=== PATIENT | male | born 1985 | race African-American/Black ===

== ENCOUNTER 2018-06-01 11:36 | Inpatient (IN) | payer SELFPAY ==
[2018-06-01] MEDS ORDERED: Acetaminophen 500 MG TAB ONE (12:08)
[2018-06-01 12:36] LABS: Anion Gap 12 mmol/L (10-20); BUN (Urea Nitrogen) 8 mg/dL (8.9-20.6); CK (CPK) 267 U/L (30-200); Calc. Creatinine Clearance 0 mL/min (70-130); Calcium 9.5 mg/dL (7.8-10.44); Carbon Dioxide 26 mmol/L (22-29); Chloride 103 mmol/L (98-107); Estimated GFR-MDRD Greater than 90; Glucose 100 mg/dL (70-105); Potassium 3.7 mmol/L (3.5-5.1); Sodium 137 mmol/L (136-145)
[2018-06-01 12:40] LABS: #Basophils 0.1 thou/uL (0.0-0.2); #Eosinphils 0.1 thou/uL (0.0-0.7); #Lymphocytes 1.6 thou/uL (1.20-3.40); #Monocytes 0.5 thou/uL (0.11-0.59); #Neutrophils 3.8 thou/uL (1.40-6.50); %Basophils 1.5 % (0.0-1.0); %Lymphocytes 26.3 % (21.0-51.0); %Monocytes 8.1 % (0.0-10.0); %Neutrophils 63.2 % (42.0-75.0); Hemoglobin 16.1 g/dL (14.0-18.0); Mean Corpuscular HGB CONC 35.2 g/dL (32.0-36.0); Mean Corpuscular Hemoglobin 30.7 pg (27.0-31.0); Mean Corpuscular Volume 87.4 fL (78.0-98.0); Mean Platelet Volume 7.6 fL (7.4-10.4); Platelet Count 186 thou/uL (130-400); RBC Distribution Width 11.1 % (11.5-14.5); Red Blood Cell (RBC) Count 5.22 mill/uL (4.70-6.10); White Blood Cell (WBC) Count 6.1 thou/uL (4.8-10.8)
[2018-06-01] MEDS ORDERED: Enoxaparin Sodium 100 MG/ML SYRINGE ONE (14:05)
[2018-06-01] MEDS ORDERED: Enoxaparin Sodium 30 MG/0.3 ML SYRINGE ONE (14:05)
--- NOTE | 2018-06-01 14:13 | ULT ---
BILATERAL LOWER EXTREMITY VENOUS DOPPLER: HISTORY: Calf swelling. COMPARISON: None. TECHNIQUE: Rela-time, rich scale, color Doppler, and spectral analysis of bilateral lower extremity venous syste m was performed. FINDINGS: There is partial occlusive thrombosis in the left popliteal vein. There is occlusive thrombus in the left posterior tibial vein. There is adequate flow, augmentation, and compression of the right lowe r extremity venous system. IMPRESSION: Left lower extremity deep vein thrombosis involving the popliteal and posterior tibial veins. Dr. Daley notified at 1:25 p.m. CODE CR POS: [facility]
[2018-06-01 16:25] VITALS: BMI 39.2
--- NOTE | 2018-06-01 16:41 | PDOC.FPRHP ---
- History of Present Illness Chief Complaint: left lower leg pain History of Present Illness: This is a 33 yo male who presented to [facility] with a 4 day history of left lower extremity pain. He states that the pain started on Tuesday after awaking from sleep in a recliner. He states that the pain has been constant, a "10/10 at rest and 15/10 with weight bearing." He states that he has also had some swelling in that left lower leg. He states that his sensation is different on his left. He denies pins and needles in his leg. He states that he tried tumeric for pain relief on Tuesday with no relief. ED Course: In the [facility] he underwent a LLE US that revealed noncompressable proximal and distal popliteal veins and left prosimal tibial veins indicating DVT. He also received 110mg of lovenox. - Allergies/Adverse Reactions Allergies Allergy/AdvReac Type Severity Reaction Status Date / Time No Known Allergies Allergy Unverified 06/01/18 16:28 - Home Medications Medication Instructions Recorded Confirmed Type No Known [No Known] 06/01/18 06/01/18 History - History PMHx:None PSHx: none FHx: Denies any family history of cancer, clotting disorders, or autoimmune disorders Social: Denies D/T/A - Review of Systems General: denies: fever/chills, weight/appetite/sleep changes, night sweats, fatigue Eyes: denies: eye pain, vision changes Respiratory: denies: cough, congestion, shortness of breath, exercise intolerance Cardiovascular: denies: chest pain, palpitation Gastrointestinal: denies: nausea, vomiting, diarrhea Genitourinary: denies: incontinence, dysuria Skin: denies: rashes, lesions Musculoskeletal: reports: pain, tenderness, swelling (States he has had some swelling in his LLE) Neurological: denies: numbness, syncope, seizure, weakness Psychological: denies: anxiety, depression - Vital signs BP: [149/84] HR: [92] RR: [16] Tmax: [98.9] Pox: [96]% on [RA] Wt: [127.414] - Physical Exam Constitutional: NAD, awake, alert and oriented HEENT: normocephalic and atraumatic, PERRLA, EOMI Neck: supple, FROM Chest: no-tender to palpation, no lesions Heart: RRR, normal S1/S2, no murmurs/rubs/gallops Lungs: CTAB, no respiratory distress, good air movement Abdomen: soft, non-tender, bowel sounds present, no masses/distention Musculoskeletal: ROM grossly normal -Musculoskeletal: Swelling over left lower extremity from distal calf to mid thigh, there is tenderness to palpation over left lower extremity with warmth, no erythema although Pt. is AA and skin tone makes exam difficult Neurological: no focal deficit, CN II-XII intact -Neurological: Pt. states that his sensation on his lower foot is different. He can feel pressure but it is different Skin: no rash/lesions, good turgor, capillary refill <2 seconds Heme/Lymphatic: no unusual bruising or bleeding, no purpura Psychiatric: normal mood and affect, good judgment and insight, intact recent and remote memory FMR H&P: Results - Labs Result Diagrams: 06/01/18 12:10 06/01/18 12:10 Lab results: WBC 6.1 thou/uL (4.8-10.8) 06/01/18 12:10 Hgb 16.1 g/dL (14.0-18.0) 06/01/18 12:10 Hct 45.7 % (42.0-52.0) 06/01/18 12:10 MCV 87.4 fL (78.0-98.0) 06/01/18 12:10 Plt Count 186 thou/uL (130-400) 06/01/18 12:10 Neutrophils % 63.2 % (42.0-75.0) 06/01/18 12:10 Sodium 137 mmol/L (136-145) 06/01/18 12:10 Potassium 3.7 mmol/L (3.5-5.1) 06/01/18 12:10 Chloride 103 mmol/L (98-107) 06/01/18 12:10 Carbon Dioxide 26 mmol/L (22-29) 06/01/18 12:10 BUN 8 mg/dL (8.9-20.6) L 06/01/18 12:10 Creatinine 0.84 mg/dL (0.7-1.3) 06/01/18 12:10 Glucose 100 mg/dL (70-105) 06/01/18 12:10 Calcium 9.5 mg/dL (7.8-10.44) 06/01/18 12:10 Creatine Kinase 267 U/L (30-200) H 06/01/18 12:10 - Radiology Interpretation US - venous Status: report reviewed by me (Proximal and distal popliteal vein, and proximal tibial vein DVT, noncompressable) R H&P: A/P - Problem List (1) Acute deep vein thrombosis of left lower extremity Current Visit: Yes Status: Acute Code(s): I82.402 - ACUTE EMBOLISM AND THOMBOS UNSP DEEP VEINS OF L LOW EXTREM - Plan This is 33 yo otherwise healthy male. Acute venous Thrombosis of the left lower extremity -Therapeutic lovenox 110mg -Warfarin 5 mg starting dose with morning INR, PTT -Monitor for respiratory distress -Hypercoagulation panel -Heparin Anti Ten A level -Casework consult for xarelto assistance program or other anticoagulation Code: FULL Family: none present at bedside Prophylaxis: none Disposition: home in 2 days FMR H&P: Upper Level - Pertinent history HPI: Patient is a 33yo AA M with no PMH presented to [facility] for 4 day hx of LLE swelling and pain. Doppler study revealed L proximal and distal DVT. Patient reports no prior trauma, no recent travel, no prior DVTs. He reports no other sx, no CP, SOB, unexplained wt loss, hematochezia/melena. No family hx of hypercoagulable disorders. She was given lovenox 110mg IM at outside facility and transferred here. ROS: 10 pt ROS performed and negative other than those mentioned in HPI PMH: none FHx: none All: none Social: occasional ETOH, former tobacco use on and off for 10 years Meds: none - Pertinent findings VS: BP- 149/84, R-16, P-92, T-98.9, O2-96% RA, Wt- 120 kg PE: General: NAD, obese, AOx3 HEENT: no JVD, no LAD Cardiac: RRR, no murmurs, distal pulses 2+ Respiratory: CTAB Abd: BS+, no ttp Ext: LLE warm with significant non-pitting edema up to the level of the thigh, ttp, + homans Pertinent Labs: CK 267 Imaging: LLE Doppler: proximal and distal popliteal DVT and distal tibial DVT - Plan Date/Time: 06/01/18 1638 IUma, have evaluated this patient and agree with findings/plan as outlined by purchasing intern resident. Pertinent changes/additions are listed here. 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 Will get peripheral smear, ESR, thrombotic panel to further evaluate. Continue therapeutic lovenox as monitored by anti-10a level. Will bridge to Coumadin. 2.Elevated BP w/o diagnosis of HTN: likely 2/2 stress. Continue to monitor. 3.Elevated CK: PO hydrate
[2018-06-01] MEDS ORDERED: Acetaminophen 325 MG TAB PO PRN (17:18)
[2018-06-01] MEDS ORDERED: Ondansetron ODT 4 MG TAB PO PRN (17:18)
[2018-06-01 18:32] LABS: Hemoglobin 16.7 g/dL (14.0-18.0); Mean Corpuscular HGB CONC 33.7 g/dL (32.0-36.0); Mean Corpuscular Hemoglobin 31.5 pg (27.0-31.0); Mean Corpuscular Volume 93.6 fL (78.0-98.0); Mean Platelet Volume 7.6 fL (7.4-10.4); Platelet Count 192 thou/uL (130-400); RBC Distribution Width 12.1 % (11.5-14.5); Red Blood Cell (RBC) Count 5.29 mill/uL (4.70-6.10); White Blood Cell (WBC) Count 6.7 thou/uL (4.8-10.8)
[2018-06-01 18:35] LABS: PTT 32.6 SEC (22.9-36.1); Prothrombin Time 13.6 SEC (12.0-14.7)
[2018-06-01] MEDS: Warfarin Sodium 5 MG TAB PO SCH (18:39)
[2018-06-01 18:53] LABS: Lymphocytes 38 % (21-51); MDiff Complete? YES; Monocytes 3 % (0-10); Neutrophil 58 % (42-75); PLT Morphology Comment Appears Adequate; RBC Morphology Normal; Reactive Lymphocytes 1 % (0-10)
[2018-06-01] MEDS: Enoxaparin Sodium 80 MG/0.8 ML SYRINGE SC SCH (20:12)
[2018-06-02 05:02] LABS: #Basophils 0.1 thou/uL (0.0-0.2); #Eosinphils 0.1 thou/uL (0.0-0.7); #Lymphocytes 2.9 thou/uL (1.20-3.40); #Monocytes 0.6 thou/uL (0.11-0.59); #Neutrophils 2.9 thou/uL (1.40-6.50); %Basophils 1.1 % (0.0-1.0); %Eosinophils 1.3 % (0.0-10.0); %Lymphocytes 44.7 % (21.0-51.0); %Monocytes 8.4 % (0.0-10.0); %Neutrophils 44.5 % (42.0-75.0); Hemoglobin 15.7 g/dL (14.0-18.0); Mean Corpuscular HGB CONC 33.3 g/dL (32.0-36.0); Mean Corpuscular Hemoglobin 31.3 pg (27.0-31.0); Mean Corpuscular Volume 94.2 fL (78.0-98.0); Mean Platelet Volume 7.4 fL (7.4-10.4); Platelet Count 188 thou/uL (130-400); RBC Distribution Width 12.1 % (11.5-14.5); Red Blood Cell (RBC) Count 5.01 mill/uL (4.70-6.10); White Blood Cell (WBC) Count 6.5 thou/uL (4.8-10.8)
[2018-06-02 05:07] LABS: Anion Gap 10 mmol/L (10-20); BUN (Urea Nitrogen) 10 mg/dL (8.9-20.6); Calc. Creatinine Clearance 220 mL/min (70-130); Calcium 9.5 mg/dL (7.8-10.44); Carbon Dioxide 30 mmol/L (22-29); Chloride 103 mmol/L (98-107); Estimated GFR-MDRD Greater than 90; Glucose 92 mg/dL (70-105); Potassium 4.2 mmol/L (3.5-5.1); Sodium 139 mmol/L (136-145)
--- NOTE | 2018-06-02 05:35 | PDOC.FM ---
- Subjective Subjective: Pt. states he did well overnight. Denies SOB, chest pain, abdominal pain, and headaches. He states that the pain in his leg is decreased at 4/10. He did not need pain meds overnight. - Objective MAR Reviewed: Yes Vital Signs & Weight: Vital Signs (12 hours) Temp Pulse Resp BP Pulse Ox 06/02/18 04:14 98 F 63 16 117/72 98 06/01/18 23:25 98.2 F 88 15 120/62 94 L 06/01/18 20:12 98.6 F 93 18 06/01/18 19:24 98.6 F 93 18 163/87 H 95 Weight Weight 127.414 kg I&O: 05/31/18 06/01/18 06/02/18 06:59 06:59 06:59 Intake Total 480 Balance 480 Result Diagrams: 06/02/18 04:31 06/02/18 04:30 <Vin Holm - Last Filed: 06/02/18 08:39> - Objective Vital Signs & Weight: Vital Signs (12 hours) Temp Pulse Resp BP Pulse Ox 06/02/18 08:00 98.1 F 70 15 06/02/18 07:57 98.1 F 70 15 124/72 95 06/02/18 04:14 98 F 63 16 117/72 98 Weight Weight 127.414 kg I&O: 06/01/18 06/02/18 06/03/18 06:59 06:59 06:59 Intake Total 1040 Output Total 300 Balance 1040 -300 Result Diagrams: 06/02/18 04:31 06/02/18 04:30 <Bienvenido Jackson - Last Filed: 06/02/18 12:05> Phys Exam - Physical Examination Constitutional: NAD HEENT: PERRLA, moist MMs Neck: no JVD, full ROM Respiratory: no wheezing, clear to auscultation bilateral Cardiovascular: RRR, no significant murmur Gastrointestinal: soft, non-tender, no distention, positive bowel sounds Musculoskeletal: pulses present Pain to palpation in LLE is decreased as is the swelling Neurological: moves all 4 limbs Sensation on LLE is still described as different Psychiatric: normal affect, A&O x 3 Skin: no rash, cap refill <2 seconds <Vin Holm - Last Filed: 06/02/18 08:39> Dx/Plan (1) Acute deep vein thrombosis of left lower extremity Code(s): I82.402 - ACUTE EMBOLISM AND THOMBOS UNSP DEEP VEINS OF L LOW EXTREM Status: Acute - Plan Plan: This is a 33 yo male, otherwise healthy Acute, unprovoked DVT -Bridge with therapeutic lovenox 1mg/kg BID -Continue warfarin until xarelto assistance becomes available or pt. is discharged -Monitor for respiratory distress -Await results of hypercoagulation panel -PT: 13.6, PTT: 32.6, INR: 1.0, D-Dimer: 3.60, ESR: 16 -Continue casework consult for xarelto assistance <Vin Holm - Last Filed: 06/02/18 08:39> Attending Addendum - Attending Addendum Date/Time: 06/02/18 1203 I personally evaluated the patient and discussed the management with Dr. Holm. I agree with the History, Examination, Assessment and Plan documented above with any addition or exceptions noted below. Patient with acute unprovoked DVT of the LLE. He will continue on lovenox with bridging to coumadin unless we can accommodate NOAC therapy. Symptomatic treatment as needed. No evidence of VTE. Thrombosis panel pending but no family history of hypercoagulability, and no recent injury or seemingly pre-disposing event that would have led to this. <Bienvenido Jackson - Last Filed: 06/02/18 12:05>
[2018-06-02] MEDS: Enoxaparin Sodium 80 MG/0.8 ML SYRINGE SC SCH ×2 (07:54→20:07)
[2018-06-02] MEDS: Warfarin Sodium 5 MG TAB PO SCH (16:35)
[2018-06-02 17:06] LABS: PTT 33.1 SEC (22.9-36.1); Prothrombin Time 13.4 SEC (12.0-14.7)
[2018-06-02 22:57] LABS: Cardiolipin IgA Ab 3.3 APL-U/mL (<14 Negative); Cardiolipin IgG Ab 1.4 GPL-U/mL (<10 Negative); Cardiolipin IgM Ab 1.3 MPL-U/mL (<10 Negative); EliA APS New Method **** NEW METHOD ****
--- NOTE | 2018-06-03 05:57 | PDOC.FM ---
- Subjective Subjective: Pt. states he did well overnight. He called xarelto assistance and he needs a discharge date and a prescription. We discussed the plan for him and the goals while he is here. He states that the feeling in his leg is improving and that he has less pain today than the days before. He denies chest pain or trouble breathing. - Objective MAR Reviewed: Yes Vital Signs & Weight: Vital Signs (12 hours) Temp Pulse Resp BP Pulse Ox 06/03/18 05:35 96 06/03/18 04:05 98.3 F 59 L 18 123/73 96 06/02/18 19:03 98.6 F 79 16 06/02/18 18:57 98.6 F 79 16 136/75 96 Weight Weight 127.55 kg I&O: 06/01/18 06/02/18 06/03/18 06:59 06:59 06:59 Intake Total 1040 750 Output Total 300 Balance 1040 450 Result Diagrams: 06/02/18 04:31 06/02/18 04:30 <Vin Holm - Last Filed: 06/03/18 07:27> - Objective Vital Signs & Weight: Vital Signs (12 hours) Temp Pulse Resp BP Pulse Ox 06/03/18 08:00 97.5 F L 61 16 06/03/18 07:32 97.5 F L 61 16 117/66 96 06/03/18 05:35 96 06/03/18 04:05 98.3 F 59 L 18 123/73 96 Weight Weight 127.55 kg I&O: 06/02/18 06/03/18 06/04/18 06:59 06:59 06:59 Intake Total 1040 1200 Output Total 900 Balance 1040 300 Result Diagrams: 06/02/18 04:31 06/02/18 04:30 <Nicki Moran - Last Filed: 06/03/18 10:44> Phys Exam - Physical Examination Constitutional: NAD HEENT: PERRLA, moist MMs Neck: no JVD, full ROM Respiratory: no wheezing, clear to auscultation bilateral Cardiovascular: RRR, no significant murmur Gastrointestinal: soft, non-tender Musculoskeletal: pulses present Decreasing swelling, warmth, and pain with palpation States that the sensation in his foot is improved Psychiatric: normal affect, A&O x 3 Skin: no rash, cap refill <2 seconds <Vin Holm - Last Filed: 06/03/18 07:27> Dx/Plan (1) Acute deep vein thrombosis of left lower extremity Code(s): I82.402 - ACUTE EMBOLISM AND THOMBOS UNSP DEEP VEINS OF L LOW EXTREM Status: Acute - Plan Plan: This is a 33 yo male, otherwise health Acute, unprovoked DVT -Pridge with therapeoutic lovenox 1mg/kg BID -Coninue warfarin until zarelto assistance becomes availble or pt. is discharged -Monitor for respiratory distress -Pending hypergoagulation panel -Assistance program states he needs to be discharged before he can be a part of it, plan on discharging patient today if INR is therapeutic <Vin Holm - Last Filed: 06/03/18 07:27> Attending Addendum - Attending Addendum Date/Time: 06/03/18 1042 I personally evaluated the patient at 0935 am and discussed the management with Dr. Holm. I agree with the History, Examination, Assessment and Plan documented above with any addition or exceptions noted below. Unprovoked DVT-continue coumadin and lovenox. Generally expect 5-7 days for INR to become therapeutic. Will give 10mg today. Follow INR. Patient to f/u on Xarelto assistance program once discharged. <Nicki Moran - Last Filed: 06/03/18 10:44>
[2018-06-03] MEDS: Enoxaparin Sodium 80 MG/0.8 ML SYRINGE SC SCH ×2 (08:35→20:52)
[2018-06-03] MEDS ORDERED: Warfarin Sodium 5 MG TAB PO SCH (10:00)
[2018-06-03 15:11] LABS: INR-International Normal Ratio 1.1; PTT 36.3 SEC (22.9-36.1); Prothrombin Time 13.8 SEC (12.0-14.7)
[2018-06-03] MEDS: Warfarin Sodium 5 MG TAB PO SCH (17:11)
--- NOTE | 2018-06-04 06:04 | PDOC.FM ---
- Subjective Subjective: Pt. states that he did well overnight. He as no complaints this morning. The pain in his leg is decreasing. He denies chest pain or SOB. - Objective Vital Signs & Weight: Vital Signs (12 hours) Temp Pulse Resp BP Pulse Ox 06/04/18 04:04 97.9 F 60 18 107/71 98 06/04/18 00:46 97.9 F 63 18 119/80 98 06/03/18 19:39 99.0 F 65 18 06/03/18 19:35 99.0 F 65 18 122/81 97 Weight Weight 127.55 kg I&O: 06/02/18 06/03/18 06/04/18 06:59 06:59 06:59 Intake Total 1040 1200 1020 Output Total 900 Balance 3429 244 7323 Result Diagrams: 06/02/18 04:31 06/02/18 04:30 <Vin Holm - Last Filed: 06/04/18 16:59> - Objective Vital Signs & Weight: Vital Signs (12 hours) Temp Pulse Resp BP Pulse Ox 06/04/18 20:54 98.9 F 79 16 126/82 97 06/04/18 16:00 97.9 F 68 22 H 122/73 96 06/04/18 12:22 96 06/04/18 11:00 98.0 F 59 L 20 116/75 96 Weight Weight 127.55 kg I&O: 06/03/18 06/04/18 06/05/18 06:59 06:59 06:59 Intake Total 1200 1020 1500 Output Total 900 Balance 300 1020 1500 Result Diagrams: 06/02/18 04:31 06/02/18 04:30 <Nicki Moran - Last Filed: 06/04/18 21:47> Phys Exam - Physical Examination Constitutional: NAD HEENT: PERRLA, moist MMs Neck: no JVD, full ROM Respiratory: no wheezing, clear to auscultation bilateral Cardiovascular: RRR, no significant murmur Gastrointestinal: soft, non-tender, no distention, positive bowel sounds Musculoskeletal: pulses present Mild swelling in left leg, temp is same in both legs now Neurological: moves all 4 limbs He states sensation is almost normal in both legs Psychiatric: normal affect, A&O x 3 Skin: no rash, cap refill <2 seconds -: Testicular exam was performed and was negative for lumps or abnormalities <Vin Holm - Last Filed: 06/04/18 16:59> Dx/Plan (1) Acute deep vein thrombosis of left lower extremity Code(s): I82.402 - ACUTE EMBOLISM AND THOMBOS UNSP DEEP VEINS OF L LOW EXTREM Status: Acute - Plan Plan: This is a 33 yo male with no significant PMH Unprovoked popliteal/tibial DVT -We are currently bridging patient from therapeutic lovenox to warfarin. This is day 3 of bridge. We are continuing to monitor INR to a therapeutic level. Pt. has called xarelto for assistance program. Pt. states that he needs a discharge date and a prescription for xarelto in order to be a part of the program. we are hopeful that he can get assistance but we are planning for him to stay on warfarin until he does. We are still waiting on a pending hypercoagulation studies. CODE: full Family: none at bedside Prophylaxis: therapeutic lovenox, warfarin Disposition: home in 2-3 days <Vin Holm - Last Filed: 06/04/18 16:59> Attending Addendum - Attending Addendum Date/Time: 06/04/18 [id number] I personally evaluated the patient and discussed the management with Dr. [] I agree with the History, Examination, Assessment and Plan documented above with any addition or exceptions noted below. Acute DVT- awaiting therapeutic INR. <Nicki Moran - Last Filed: 06/04/18 21:47>
[2018-06-04 06:09] LABS: INR-International Normal Ratio 1.2; Prothrombin Time 14.8 SEC (12.0-14.7)
[2018-06-04] MEDS: Enoxaparin Sodium 80 MG/0.8 ML SYRINGE SC SCH (09:08)
[2018-06-04] MEDS ORDERED: Warfarin Sodium 10 MG TAB PO SCH (17:00)
[2018-06-04] MEDS ORDERED: Warfarin Sodium 7.5 MG TAB PO SCH (17:00)
[2018-06-04] MEDS: Enoxaparin Sodium 30 MG/0.3 ML SYRINGE SC SCH (20:55)
[2018-06-04] MEDS: Enoxaparin Sodium 100 MG/ML SYRINGE SC SCH (20:56)
--- NOTE | 2018-06-05 05:28 | PDOC.FM ---
- Subjective Subjective: Pt. states that he is doing well over night. He denies any chest pain, SOB, or abdominal pain. He States his pain is almost gone. He talks like he is ready to leave. - Objective MAR Reviewed: Yes Vital Signs & Weight: Vital Signs (12 hours) Temp Pulse Resp BP Pulse Ox 06/05/18 04:42 98 06/05/18 04:03 98.2 F 72 18 116/71 98 06/05/18 00:15 98.4 F 60 16 114/73 97 06/04/18 20:54 98.9 F 79 16 126/82 97 06/04/18 20:00 98.9 F 79 16 97 Weight Weight 127.55 kg I&O: 06/03/18 06/04/18 06/05/18 06:59 06:59 06:59 Intake Total 1200 1020 1500 Output Total 900 Balance 300 1020 1500 Result Diagrams: 06/02/18 04:31 06/02/18 04:30 Phys Exam - Physical Examination Constitutional: NAD HEENT: PERRLA, moist MMs Neck: no JVD, full ROM Respiratory: no wheezing, clear to auscultation bilateral Cardiovascular: RRR, no significant murmur Gastrointestinal: soft, non-tender, no distention, positive bowel sounds Musculoskeletal: pulses present Pt. statesthat his sensation is almost back to normal Swelling is almost entirely gone. Neurological: normal sensation, moves all 4 limbs Psychiatric: normal affect, A&O x 3 Dx/Plan (1) Acute deep vein thrombosis of left lower extremity Code(s): I82.402 - ACUTE EMBOLISM AND THOMBOS UNSP DEEP VEINS OF L LOW EXTREM Status: Acute - Plan Plan: This is a 33 yo AA male with no significant PMH Acute, Unprovoked popliteal/ tibial DVT -We are currently bridging patient from therapeutic lovenox to warfarin. This is day 4 of bridge. We are continuing to monitor INR (1.3 06/05) to a therapeutic level. Pt. has called [facility] for assistance program and states that he needs a discharge date and a prescription to qualify. We are hopeful he will be a part of the program but we are planning on sending him home on therapeutic warfarin. We are still waiting on hypercoagulable studies Code: FULL Family: none at bedside Prophylaxis: Therapeutic lovenox, warfarin Disposition: home in 1-2 days
[2018-06-05 06:29] LABS: INR-International Normal Ratio 1.3; PTT 36.4 SEC (22.9-36.1); Prothrombin Time 16.5 SEC (12.0-14.7)
[2018-06-05] MEDS: Enoxaparin Sodium 30 MG/0.3 ML SYRINGE SC SCH (08:29)
[2018-06-05] MEDS: Enoxaparin Sodium 100 MG/ML SYRINGE SC SCH (08:29)
--- NOTE | 2018-06-05 14:37 | ADD-PRG ---
ADDENDUM DATE OF SERVICE: 06/05/2018 This is an addendum to the note of Dr. Vin Holm. Mr. Babcock came in with pain and swelling in his left lower extremity was found to have a DVT, unprovoked. He is currently on Lovenox and we are adjusting his Coumadin dosages to attempt an INR between 2 and 3. He is in no distress. He has had no chest pain or shortness of breath. His leg feels better. His current PT is 16.5 with an INR of 1 .3. We will continue to make adjustments in Coumadin in anticipation of discharge home as soon as hi s INR is between 2 and 3. He is also undergoing a thrombophilia workup given his young age with no p rovocation.
[2018-06-05] MEDS ORDERED: Rivaroxaban 15 MG TAB PO SCH (16:00)
[2018-06-05 16:35] VITALS: BP 132/84; TEMP 98.8
--- NOTE | 2018-06-06 03:57 | DIS-2 ---
DATE OF ADMISSION: 06/01/2018 DATE OF DISCHARGE: 06/05/2018 RESIDENT: Vin Holm DO ADMITTING ATTENDING: Bienvenido Jackson MD DISCHARGE ATTENDING: Chris Louis MD CONSULTS: None. PROCEDURES: Lower extremity venous ultrasound showing proximal and distal popliteal vein thrombosis as well as left proximal tibial vein thrombosis. PRIMARY DIAGNOSIS: Acute unprovoked deep venous thrombosis. SECONDARY DIAGNOSES: None. DISCHARGE MEDICATIONS: Xarelto 15 mg b.i.d. to 20 mg daily. DISCONTINUED MEDICATIONS: None. HOSPITAL COURSE: This is a 33-year-old male who presented to the ER on the with a chief complai nt of left lower extremity leg pain for 4 days. He states that his pain started when he woke up from the recliner had some swelling. It was made worse with weightbearing. The patient tried tumor to i mprove pain, but this has not helped. The patient was admitted to observation. Because patient is u ninsured, we began bridging to warfarin with therapeutic Lovenox and 5 mg of warfarin, daily monitori ng INR, which slowly climbed approximately 0.1 per day. The patient tolerated the medicine, however, patient grew frustrated about staying in the hospital earlier today (at 7:30). I discussed trying X arelto assistance program. The patient was set up with starter pack by case management and will be t aking Xarelto in the outpatient setting, starting with a dose in the hospital tonight. DISPOSITION: Stable. DISCHARGE INSTRUCTIONS: 1. Location: Home. 2. Diet: Regular. 3. Activity: As tolerated. 4. Follow up with Dr. Holm in clinic on 06/13/2018.
[2018-06-07 13:17] LABS: Factor VIII Test 341.5 % ACTIVE (56-157); Protein C Activity 121 % (78-152)
== END 2018-06-05 18:09 | disposition home or self-care (01) | DRG 301 ==
LOC: SCSER 11:36 → 2SW 16:15 → OBSVTOIN 16:15 → T4-B 06-03 14:45
PROVIDERS: ADMIT Family Medicine; ATTEND Family Medicine
DX: I82.432 Acute embolism and thrombosis of left popliteal vein (principal); I82.442 Acute embolism and thrombosis of left tibial vein; F17.220 Nicotine dependence, chewing tobacco, uncomplicated; F17.210 Nicotine dependence, cigarettes, uncomplicated; R03.0 Elevated blood-pressure reading, without diagnosis of hypertension
CPT/HCPCS: 36415; 80048; 81240; 81241; 82550; 83090; 85025; 85060; 85240; 85300; 85303; 85305; 85307; 85379; 85520; 85598; 85610; 85652; 85730; 86147; 93970; 96372; J1650